=== PATIENT | male | born 1980 | race Caucasian/White ===

== ENCOUNTER 2019-05-18 13:12 | Emergency (ER) | payer SELFPAY ==
[2019-05-18 13:25] VITALS: BP 115/69; PULSE 85; O2SAT 99
--- NOTE | 2019-05-18 13:50 | ERPHSYRPT ---
- History of Present Illness Time Seen by Provider: 05/18/19 13:39 Source: patient Exam Limitations: no limitations Patient Subjective Stated Complaint: Pt states "I think I have an infected toe. It was on the other side and I treated that and now it is on the other side." Triage Nursing Assessment: Pt presented alert and oriented X 3, skin pwd Pt ambualtes with an upright steady gait, able to speak in clear full sentences . Pt wearing mask and medical gloves. Pt has red swollen area to the left great toe on the lateral side. Physician History: Pt states "I think I have an infected toe. It was on the other side and I treated that and now it is on the other side." Pain and tenderness on left great toe, scally nails on all toes Occurred: other (few days) Severity of Pain-Max: none Severity of Pain-Current: none Lower Extremities Pain: 1st toe: left (ingrown toe nail) Modifying Factors: Improves With: nothing Associated Symptoms: none Allergies/Adverse Reactions: No Known Drug Allergies Allergy (Unverified 05/18/19 13:25) Hx Tetanus, Diphtheria Vaccination/Date Given: No Hx Influenza Vaccination/Date Given: No Hx Pneumococcal Vaccination/Date Given: No Immunizations Up to Date: Yes - Review of Systems Constitutional: No Symptoms Eyes: No Symptoms Ears, Nose, & Throat: No Symptoms Respiratory: No Symptoms Cardiac: No Symptoms Abdominal/Gastrointestinal: No Symptoms Genitourinary Symptoms: No Symptoms Musculoskeletal: No Symptoms Skin: Cellulitis (around left great toe), Other (whitish patches on all toe nails) - Past Medical History Pertinent Past Medical History: No - Past Surgical History Past Surgical History: No - Social History Smoking Status: Never smoker Exposure to second hand smoke: Yes Drug Use: none Patient Lives Alone: No - Nursing Vital Signs Nursing Vital Signs: Initial Vital Signs Temperature 98.4 F 05/18/19 13:19 Pulse Rate 85 05/18/19 13:19 Respiratory Rate 18 05/18/19 13:19 Blood Pressure 115/69 05/18/19 13:19 O2 Sat by Pulse Oximetry 99 05/18/19 13:19 Pain Scale Pain Intensity 2 - Physical Exam General Appearance: no apparent distress Eyes, Ears, Nose, Throat Exam: normal ENT inspection Neck Exam: normal inspection Cardiovascular/Respiratory Exam: chest non-tender Gastrointestinal/Abdominal Exam: non-tender Foot Exam: left foot: soft tissue tenderness (great toe), bilateral foot: other (white scally nails) Neuro/Tendon Exam: normal sensation Mental Status Exam: alert, oriented x 3, cooperative SpO2: 99 - Course Nursing assessment & vital signs reviewed: Yes - Progress Progress: unchanged Counseled pt/family regarding: diagnosis, need for follow-up - Departure Departure Disposition: Home Clinical Impression: Ingrown left big toenail, Onychomycosis with ingrown toenail Condition: Stable Critical Care Time: No Referrals: AVTAR BERNABE MD [ACTIVE STAFF] - Instructions: Ingrown Toenail (DC), Fungal Nail Infections Additional Instructions: DURANNATHALIE FAROOQ was seen on 05/18/19 n the Emergency Room. At that time you were treated for an emergent condition, during your visit Laboratory, Radiology and/or other procedures may have been ordered. It is very important that you follow-up with your Primary Care Physician within the next 24-48 hours to review your Emergency Room visit and the final results of testing that was ordered. Some test results such as Urine Cultures, Blood Cultures, and other cultures if ordered will not be finalized for 24-48 hours. If you do not have a Primary Care Provider please call the medical records department at [phone] to obtain a copy of your results or you may sign into our patient portal to obtain these results by visiting us @ [email or web address] and completing the following steps: 1. Click on the Patient Portal link 2. Click the Patient Self Enrollment Link to complete the enrollment form and entering your 3. Once the enrollment form is completed you will receive an email with a temporary ID and password at the email address you provided. 4. Next choose a user name and password. Your user name must be at least 4 characters long and your password must be at least 4 characters long. 5. Choose a security question from the list and provide your answer to the question. If you already have signed into the Health Portal you may access your Health Care Information 31/10 by the following steps: 1. Login to our website @ [email or web address] 2. Enter your original user name and password. FAQS The [facility] Health Portal is an online tool that contains your Lab Results, Radiology Reports, Visit History, Discharge Instructions and Health Summary Lab and Radiology Results will not be available for 72 hours on the portal. The Portal is a secure site, passwords are encryted and URLs are re-written so they cannot be copied and pasted. You and authorized family members are the only ones who can access your Portal. Also there is a timeout feature that protects your information if you leave the Portal page open. If you have technical difficulty please use the Contact Us link on the page this will allow you to submit any questions you have regarding the Portal or you may contact the Medical Record Department at [phone]. Prescriptions: Cephalexin Mh 500 mg [Keflex 500 mg] 500 mg PO Q6H #40 capsule Terbinafine HCl [Lamisil] 250 mg PO DAILY 90 Days #90 tablet
== END 2019-05-18 14:24 | disposition home or self-care (01) ==
LOC: ED 13:12
DX: L60.0 Ingrowing nail (principal); B35.1 Tinea unguium
CPT/HCPCS: 99283